=== PATIENT | female | born 1990 | race Caucasian/White ===

== ENCOUNTER 2018-07-16 23:04 | Emergency (ER) | payer SELFPAY ==
[~2018-07-16] VITALS: Ht 160 cm; Wt 54.4 kg
[2018-07-16 23:52] VITALS: BP 112/81
[2018-07-17] MEDS ORDERED: KETOROLAC TROMETHAMINE INJ 30 MG/ML VIAL IM ONE (00:30)
[2018-07-17] MEDS ORDERED: predniSONE 20 MG TABLET PO ONE (00:30)
[2018-07-17] MEDS ORDERED: KETOROLAC TROMETHAMINE INJ 30 MG/ML VIAL ONE (01:09)
[2018-07-17] MEDS ORDERED: predniSONE 20 MG TABLET ONE (01:09)
== END 2018-07-17 01:17 | disposition home or self-care (01) ==
LOC: ER 23:09
DX: M77.8 Other enthesopathies, not elsewhere classified (principal); M54.10 Radiculopathy, site unspecified; F41.9 Anxiety disorder, unspecified
CPT/HCPCS: 29125; 73130; 93005; 96372; 99284; A4606; J1885; Z7610